=== PATIENT | male | born 1965 | race Caucasian/White ===

== ENCOUNTER 2024-06-05 09:43 | Outpatient (CLI) | payer MEDICARE ==
[2024-06-05 10:24] LABS: BASOPHILS # (AUTO) 0.1 X10'3 (0-0.2); BASOPHILS % (AUTO) 0.6 % (0-1); EOSINOPHILS # (AUTO) 0.2 X10'3 (0-0.9); EOSINOPHILS % (AUTO) 2.4 % (0-6); HEMATOCRIT 40.5 % (42.0-52.0); HEMOGLOBIN 13.6 g/dl (14.0-17.9); LYMPHOCYTES % (AUTO) 22.6 % (21-51); MEAN CORPUSCULAR HEMOGLOBIN 34.7 PG (27.0-31.0); MEAN CORPUSCULAR HGB CONC 33.7 g/dL (33.0-36.5); MEAN PLATELET VOLUME 8.1 FL (7.4-10.4); MONOCYTES # (AUTO) 1.1 X10'3 (0-0.9); MONOCYTES % (AUTO) 12.3 % (2-12); NEUTROPHILS # (AUTO) 5.5 X10'3 (1.8-7.7); NEUTROPHILS % (AUTO) 62.1 % (42-75); PLATELET COUNT 284 X10'3 (140-440); RED BLOOD COUNT 3.93 X10'6 (4.70-6.10); RED CELL DISTRIBUTION WIDTH 13.6 % (11.5-14.5); WHITE BLOOD COUNT 8.9 X10'3 (4.5-11.0)
[2024-06-05 10:27] LABS: APTT 26 SECONDS (22-32); PROTHROMBIN TIME 10.4 SECONDS (9.0-12.0)
[2024-06-05 10:29] LABS: ALBUMIN 4.2 G/DL (3.4-5.0); ANION GAP 7 (8-16); BLOOD UREA NITROGEN 13 MG/DL (7-18); BUN/CREATININE RATIO 25.5 (10.0-20.0); CALCIUM 9.2 MG/DL (8.5-10.1); CHLORIDE 101 MMOL/L (99-107); CREATININE 0.51 MG/DL (0.60-1.10); GLUCOSE 123 MG/DL (70-104); POTASSIUM 4.1 MMOL/L (3.5-5.1); SODIUM 137 MMOL/L (135-145); TOTAL CARBON DIOXIDE 28.9 MMOL/L (24-32); eGFR > 90 ML/MIN
[2024-06-05 10:30] LABS: CHOL/HDL RATIO 2.8 (0.00-4.99); CHOLESTEROL 197 MG/DL (0-200); HDL CHOLESTEROL 70 MG/DL (35-60); LDL CHOLESTEROL 105 MG/DL (50-100); TRIGLYCERIDES 96 MG/DL (20-135)
== END 2024-06-05 23:59 | disposition home or self-care (01) ==
LOC: LAB 09:43
DX: Z01.812 Encounter for preprocedural laboratory examination (principal); E78.5 Hyperlipidemia, unspecified; R53.83 Other fatigue; Z79.01 Long term (current) use of anticoagulants
CPT/HCPCS: 36415; 80048; 80061; 85025; 85610; 85730

== ENCOUNTER 2024-06-07 11:42 | Day surgery (SDC) | payer MEDICARE ==
[2024-06-07] VITALS (7 sets, daily range): BP systolic 93–139; BP diastolic 67–89; PULSE 71–91; RESP 16; TEMP 99.4; O2SAT 94–98
[~2024-06-07] VITALS: Ht 170.2 cm; Wt 74.3 kg
[2024-06-07] MEDS ORDERED: diphenhydrAMINE 25mg capsule PO ONE (12:20)
[2024-06-07] MEDS ORDERED: LORazepam 0.5 MG tablet PO ONE (12:20)
[2024-06-07] MEDS ORDERED: normal saline 1000ml 1,000 ML IV SCH (12:20)
[2024-06-07] MEDS ORDERED: LOVA20TA2 PO (12:26)
[2024-06-07] MEDS ORDERED: HYDR-3972 PO (12:26)
[2024-06-07] MEDS ORDERED: normal saline 1,000 ML IV SCH (12:40)
[2024-06-07] MEDS ORDERED: diphenhydrAMINE 25mg capsule PO PRN (12:40)
[2024-06-07] MEDS ORDERED: LORazepam 0.5 MG tablet PO PRN (12:40)
[2024-06-07] MEDS ORDERED: fentaNYL/PF 50MCG/1 ML 2ML syringe ONE (13:38)
[2024-06-07] MEDS ORDERED: midazolam 1 mg/ML 2ml injection ONE ×2 (13:38→14:41)
[2024-06-07] MEDS ORDERED: verapamil 2.5 mg/ml inj IV ONE (13:38)
[2024-06-07] MEDS ORDERED: nitroGLYCERIN 500mcg/5mL D5W 5 ML IV ONE (13:39)
[2024-06-07] MEDS ORDERED: heparin 1,000unit/ml 10ml vial 10 ML ONE (13:39)
[2024-06-07] MEDS ORDERED: LIDOcaine 1% (10mg/ml) 2ml vial ONE (13:39)
[2024-06-07] MEDS ORDERED: iohexol 350MG/ML 100ml bottle IV ONE (13:39)
[2024-06-07] MEDS ORDERED: iohexol 350 MG/ML 50ML vial IV ONE (14:56)
[2024-06-07 15:15] LABS: ISTAT HGB ART 11.6 g/dl (14.0-17.9); ISTAT Hct ART 34 %PCV (42-52); ISTAT O2 SATURATION ARTERIAL 90 % (95-98); ISTAT SOURCE ART
== END 2024-06-07 17:10 | disposition home or self-care (01) ==
LOC: SSTAY O 11:42
PROVIDERS: ATTEND Internal Medicine Interventional Cardiology
DX: I35.0 Nonrheumatic aortic (valve) stenosis (principal); E78.00 Pure hypercholesterolemia, unspecified; Z79.899 Other long term (current) drug therapy; Z98.890 Other specified postprocedural states; Z82.49 Family history of ischemic heart disease and other diseases of the circulatory system
CPT/HCPCS: 82803; 85014; 93005; 93456; 99152; A4615; A6258; A6402; C1894; J1644; J2001; J2250; J3010; J3490; J7030; Q9967; Z7610; 99153; A6449; C1769

== ENCOUNTER 2024-06-29 12:30 | Outpatient (CLI) | payer MEDICARE ==
[~2024-06-29 12:30] MED LIST: HYDR-3972 PO; LOVA20TA2 PO
[2024-06-29 13:36] LABS: BILIRUBIN,URINE NEGATIVE (Neg); CLARITY,URINE CLEAR (Clear); COLOR,URINE YELLOW (Yellow); GLUCOSE, URINE NEGATIVE (Neg); KETONES,URINE NEGATIVE (Neg); LEUKOCYTE ESTERASE ,URINE NEGATIVE (Neg); NITRITES, URINE NEGATIVE (Neg); OCCULT BLOOD,URINE NEGATIVE (Neg); PH,URINE 5.5 (4.8-8.0); PROTEIN,URINE NEGATIVE (Neg); UROBILINOGEN,URINE 0.2 E.U/dL (0.2-1.0)
[2024-06-29 13:40] LABS: UA COLLECTION TYPE VOIDED
[2024-06-29 14:16] LABS: BASOPHILS # (AUTO) 0.1 X10'3 (0-0.2); BASOPHILS % (AUTO) 0.5 % (0-1); EOSINOPHILS # (AUTO) 0.1 X10'3 (0-0.9); EOSINOPHILS % (AUTO) 1.6 % (0-6); LYMPHOCYTES # (AUTO) 1.9 X10'3 (1.1-4.8); LYMPHOCYTES % (AUTO) 20.3 % (21-51); MEAN CORPUSCULAR HEMOGLOBIN 34.6 PG (27.0-31.0); MEAN CORPUSCULAR HGB CONC 33.6 g/dL (33.0-36.5); MEAN CORPUSCULAR VOLUME 103.1 FL (78-98); MEAN PLATELET VOLUME 7.7 FL (7.4-10.4); MONOCYTES # (AUTO) 0.9 X10'3 (0-0.9); MONOCYTES % (AUTO) 9.8 % (2-12); NEUTROPHILS # (AUTO) 6.4 X10'3 (1.8-7.7); NEUTROPHILS % (AUTO) 67.8 % (42-75); PRE OP HEMATOCRIT 38.8 % (42.0-52.0); PRE OP PLATELET COUNT 310 X10'3 (140-440); PRE OP WHITE BLOOD COUNT 9.4 10'3 (4.8-10.8); RED BLOOD COUNT 3.76 X10'6 (4.70-6.10); RED CELL DISTRIBUTION WIDTH 13.4 % (11.5-14.5)
[2024-06-29 14:33] LABS: ALBUMIN/GLOBULIN RATIO 1.2 (1.1-1.5); ALKALINE PHOSPHATASE 57 IU/L (46-116); BLOOD UREA NITROGEN 6 MG/DL (7-18); BUN/CREATININE RATIO 12.8 (10.0-20.0); CALCIUM 9.1 MG/DL (8.5-10.1); CHLORIDE 98 MMOL/L (99-107); CREATININE 0.47 MG/DL (0.60-1.10); PRE OP ALT 33 U/L (30-65); PRE OP ANION GAP 5 (8-16); PRE OP AST 33 U/L (10-37); PRE OP BILIRUB, TOTAL 0.4 MG/DL (0.0-1.0); PRE OP GLUCOSE 103 MG/DL (70-104); PRE OP POTASSIUM 4.1 MMOL/L (3.4-5.1); PRE OP PROTIME 10.7 SECONDS (9.0-12.0); PRE OP SODIUM 133 MMOL/L (135-145); TOTAL CARBON DIOXIDE 29.7 MMOL/L (24-32); TOTAL PROTEIN 7.4 G/DL (6.4-8.2); eGFR > 90 ML/MIN
[2024-06-29 14:35] LABS: ABG BASE EXCESS -0.8 mmol/L (-2.0-3.0); ABG HCO3 22.8 mmol/L (21.0-28.0); ABG OXYGEN SATURATION 95.6 % (94.0-98.0); ABG PCO2 (T) 34.2 mmHg (35.0-48.0); ABG PH (T) 7.441 (7.350-7.450); ABG PO2 (T) 78.1 mmHg (83.0-108.0); ALLEN'S TEST POSITIVE; FCOHb 0.1 % (0.5-1.5); FHHb 4.4 % (0.0-5.0); FO2Hb 95.5 % (94.0-98.0); MODE ROOM AIR; TOTAL HEMOGLOBIN 13.5 G/dl (13.5-17.5)
[2024-06-29 14:51] LABS: HEMOGLOBIN A1C 5.4 % (4.5-6.2)
[2024-06-29] MEDS ORDERED: ASPI-612 PO (16:08)
== END 2024-06-29 23:58 | disposition home or self-care (01) ==
LOC: PRE-OP 12:30 → EDSTATUS 07-06 08:30
PROVIDERS: ATTEND Thoracic Surgery (Cardiothoracic Vascular Surgery)
DX: Z01.818 Encounter for other preprocedural examination (principal); I35.0 Nonrheumatic aortic (valve) stenosis
CPT/HCPCS: 36415; 36600; 71046; 80053; 81003; 82803; 83036; 85018; 85025; 85610; 85730; 86885; 86900; 86901; 86920; 87081; 93005; 93970